=== PATIENT | female | born 1985 | race Caucasian/White ===

== ENCOUNTER 2025-04-15 04:57 | Inpatient (IN) | payer OTHER ==
[2025-04-12 11:30] LABS: Hematocrit 38.7 % (34.9-44.5); Hemoglobin 13.6 g/dL (12.0-15.5); Platelet Count 206 10x3/uL (150-450)
[2025-04-12 12:24] LABS: Syphilis Antibody Index 0.08 S/CO (<1.00 Non-Reactive)
[2025-04-12 12:25] LABS: Hep B Surf Ag Non-Reactive S/CO (NonReactive)
[~2025-04-15 04:57] MED LIST: Bicitra 30 ML UDCUP PO PRN; Ondansetron PF 4 MG/2 ML Vial IVP PRN; Oxytocin 30 units/NS 500 ML 500 ML IV SCH; hydrALAZINE 20 MG/ML VIAL SLOW IVP PRN
[2025-04-15 05:05] VITALS: BMI 31.7
[2025-04-15] MEDS: Famotidine/PF 20 mg/2ml Vial SLOW IVP PRN (07:32)
[2025-04-15] MEDS ORDERED: Meperidine HCl/PF 25 MG (1 mL) VIAL SLOW IVP PRN (08:47)
[2025-04-15] MEDS ORDERED: Ondansetron PF 4 MG/2 ML Vial IVP PRN ×3 (08:47→11:09)
[2025-04-15] MEDS ORDERED: HYDROmorphone 0.5 MG/0.5 ML SYRINGE SLOW IVP PRN (08:47)
[2025-04-15] MEDS ORDERED: Communication Order-Pharmacy FS SCH (09:00)
[2025-04-15] MEDS: Oxytocin 10 UNITS/ML VIAL ONE (10:25)
[2025-04-15] MEDS: Ondansetron PF 4 MG/2 ML Vial ONE (10:25)
[2025-04-15] MEDS: PHENYLEPHRINE-NS 100 MCG/ML 10 ML SYRINGE ONE (10:25)
[2025-04-15] MEDS: Tranexamic Acid 1,000 MG/10 ML VIAL ONE (10:26)
[2025-04-15] MEDS: Ketorolac Tromethamine 30 MG (1 mL) VIAL IVP SCH (10:28)
[2025-04-15] MEDS ORDERED: Bisacodyl 10 MG SUPP PR PRN (11:09)
[2025-04-15] MEDS ORDERED: Lanolin Ointment 7 GM TUBE TOP PRN (11:09)
[2025-04-15] MEDS ORDERED: hydrALAZINE 20 MG/ML VIAL SLOW IVP PRN (11:09)
[2025-04-15] MEDS: diphenhydrAMINE 50 MG/ML VIAL IVP PRN (13:35)
[2025-04-15] MEDS: Simethicone Chewable 80 MG TAB PO PRN (13:36)
[2025-04-15] MEDS: Ketorolac Tromethamine 30 MG (1 mL) VIAL IVP PRN (16:59)
[2025-04-15] MEDS: Ferrous Sulfate 325 MG TAB PO SCH ×2 (18:23→21:09)
[2025-04-15] MEDS ORDERED: HYDROcodone/Acetaminophen 5/325 mg Tablet PO PRN (21:00)
[2025-04-16] MEDS: HYDROcodone/Acetaminophen 5/325 mg Tablet PO PRN (01:03)
[2025-04-16 04:53] LABS: Hematocrit 34.2 % (34.9-44.5); Hemoglobin 11.4 g/dL (12.0-15.5); Mean Corpuscular Hemoglobin 30.2 pg (27.0-33.0); Mean Corpuscular Volume 90.5 fL (81.6-98.3); Platelet Count 150 10x3/uL (150-450); Red Blood Cell (RBC) Count 3.78 10x6/uL (3.90-5.03); White Blood Cell (WBC) Count 12.61 10x3/uL (3.5-10.5)
[2025-04-16] MEDS: Ibuprofen 800 MG TAB PO SCH (13:31)
[2025-04-17 08:24] VITALS: BP 113/75; TEMP 98.3
== END 2025-04-17 10:45 | disposition home or self-care (01) | DRG 785 ==
LOC: CSHLD 04:57 → CSHPP 11:00
PROVIDERS: ADMIT Obstetrics & Gynecology; ATTEND Obstetrics & Gynecology
PROC: 10D00Z1 Extraction of Products of Conception, Low, Open Approach (ICD-10-PCS; principal; 2025-02-13)
PROC: 0UB70ZZ Excision of Bilateral Fallopian Tubes, Open Approach (ICD-10-PCS; 2025-02-13)
DX: O34.211 Maternal care for low transverse scar from previous cesarean delivery (principal); Z3A.39 39 weeks gestation of pregnancy; Q51.9 Congenital malformation of uterus and cervix, unspecified; Z37.0 Single live birth
CPT/HCPCS: 36415; 51702; 85014; 85018; 85027; 85049; 86780; 86850; 86900; 86901; 87340; 88302; J1200; J1308; J1885; J2274; J2405; J2550; J2590; J7120